=== PATIENT | female | born 1980 | race Caucasian/White ===

== ENCOUNTER → 2016-08-18 | Outpatient (CLI) | payer OTHER ==
[~2016-08-18] MED LIST: CETI10TA10 PO; CHOL100010 PO; DICL1TAB5 PO; DULO60CA44 PO; GOLI50IN INJ; JNLF153028 PO; LORA-741 PO; MORP15TA PO; PRAM1TAB52 PO; PREG1CAP70 PO; SULF500T36 PO
[2016-08-18 13:37] LABS: FERRITIN 264.6 ng/ml (8.0-388.0); MAGNESIUM 2.3 mg/dl (1.8-2.4); THYROID STIMULATING HORMONE 4.85 uIu/ml (0.300-4.500)
== END | disposition home or self-care (01) ==
LOC: C.LABBC 09:48
DX: G25.81 Restless legs syndrome (principal); M62.838 Other muscle spasm; M79.7 Fibromyalgia

== ENCOUNTER 2016-08-26 09:37 | Inpatient (IN) | payer OTHER ==
[~2016-08-26] VITALS: Ht 162.6 cm; Wt 91.0 kg
[~2016-08-26 09:37] MED LIST changes: -DICL1TAB5 PO
[2016-08-26] MEDS ORDERED: DICL1TAB5 PO (09:58)
[2016-08-26] MEDS ORDERED: PROMETHAZINE HCL INJ 6.25 MG in SODIUM CHLORIDE 0.9% 50ML 50 ML IV STA (10:13)
[2016-08-26] MEDS ORDERED: SODIUM CHLORIDE 0.9% 1000ML 2,000 ML IV STA (10:13)
[2016-08-26] MEDS ORDERED: ONDANSETRON INJ 2 MG/ML 2 ML VIAL IV STA (10:13)
[2016-08-26] MEDS: MoRPHine SULFATE 4 MG/ML 1 ML CARP\\VIAL IV PRN ×5 (10:52→22:36)
--- NOTE | 2016-08-26 10:59 | DIAGNOSTIC IMAGING REPORT ---
CHEST ONE VIEW PORTABLE CLINICAL HISTORY: Change in mental status. Weakness. COMPARISON STUDY: No previous studies for comparison. FINDINGS: The cardiac and mediastinal contours are normal. There is no evidence of focal pulmonary consolidation. There is no evidence of failure. No pleural effusions are visualized.[ IMPRESSION: No active disease in the chest. Electronically signed by: Imer Ospina M.D. 08/26/2016 10:58 AM Dictated Date/Time: 08/26/2016 10:58 AM
[2016-08-26 11:11] LABS: BASO % 0.4 %; BASO ABS # 0.03 K/uL (0-0.2); COMPLETE YES; HEMATOCRIT 43.1 % (37-47); IG% 0.2 %; LYMPH % 35.5 %; MEAN CORPUSCULAR HEMOGLOBIN 31.3 pg (25-34); MEAN CORPUSCULAR HGB CONC 34.8 g/dl (32-36); MEAN PLATELET VOLUME 11.1 fL (7.4-10.4); MONO % 5.7 %; NEUT % 54.2 %; PLATELET COUNT 227 K/uL (130-400); RED BLOOD COUNT 4.79 M/uL (4.2-5.4); WHITE BLOOD COUNT 8.18 K/uL (4.8-10.8)
[2016-08-26 11:19] LABS: ALT/SGPT 48 U/L (12-78); AST/SGOT 20 U/L (15-37); BLOOD UREA NITROGEN 6 mg/dl (7-18); BUN/CREATININE RATIO 8.2 (10-20); CALCIUM 8.8 mg/dl (8.5-10.1); CARBON DIOXIDE 25 mmol/L (21-32); CHLORIDE 106 mmol/L (98-107); CREATININE 0.79 mg/dl (0.60-1.20); GLUCOSE 95 mg/dl (70-99); MAGNESIUM 2.3 mg/dl (1.8-2.4); POTASSIUM 3.7 mmol/L (3.5-5.1); SODIUM 141 mmol/L (136-145)
[2016-08-26 11:30] LABS: ALB/GLOB RATIO 1.1 (0.9-2); ALKALINE PHOSPHATASE 32 U/L (45-117); THYROID STIMULATING HORMONE 0.703 uIu/ml (0.300-4.500)
[2016-08-26 11:37] LABS: PREG INTERNAL NEGATIVE QC NEG CLEAR BACKGROUND; PREG INTERNAL POSITIVE QC POS CONTROL LINE
[2016-08-26 14:41] LABS: URINE APPEARANCE CLOUDY (CLEAR); URINE BILIRUBIN NEG (NEG); URINE COLOR YELLOW; URINE NITRITE NEG (NEG); URINE PH 8.5 (4.5-7.5); URINE SPECIFIC GRAVITY 1.013 (1.000-1.030); UROBILINOGEN NEG (NEG); ZZUR CULT IF INDIC CLEAN CATCH NO
[2016-08-26 14:47] LABS: MANUAL MICROSCOPIC REQUIRED? NO; REVIEW REQ? NO
[2016-08-26] MEDS ORDERED: PROMETHAZINE HCL INJ 12.5 MG in SODIUM CHLORIDE 0.9% 50ML 50 ML IV PRN (16:15)
[2016-08-26] MEDS ORDERED: KETOROLAC TROMETHAMINE 30 MG/ML VIAL IV PRN (16:15)
[2016-08-26] MEDS ORDERED: ALUMINUM/MAGNESIUM/SIMETH (MAALOX MAX) 30 ML UDC PO PRN (16:15)
[2016-08-26] MEDS ORDERED: MoRPHine SULFATE 2 MG/ML CARP IV PRN (16:15)
[2016-08-26] MEDS ORDERED: ACETAMINOPHEN 325 MG TAB PO PRN (16:15)
[2016-08-26] MEDS ORDERED: MAGNESIUM HYDROXIDE SUSP 30 ML UDC PO PRN (16:15)
[2016-08-26] MEDS ORDERED: MoRPHine SULFATE 4 MG/ML 1 ML CARP\\VIAL IV PRN (16:15)
[2016-08-26] MEDS ORDERED: BISACODYL 10 MG SUPP PR PRN (16:15)
[2016-08-26] MEDS ORDERED: ZOLPIDEM TARTRATE 5 MG TAB PO PRN (16:15)
[2016-08-26] MEDS ORDERED: ACETAMINOPHEN IV 100 ML IV PRN (16:15)
[2016-08-26] MEDS ORDERED: LORAZEPAM 2 MG/ML 1 ML VIAL IV PRN ×2 (16:15)
[2016-08-26] MEDS ORDERED: DiphenhydrAMINE HCL 50 MG/ML VIAL IV PRN (16:15)
[2016-08-26] MEDS ORDERED: KETOROLAC TROMETHAMINE 30 MG/ML VIAL ONE (16:24)
--- NOTE | 2016-08-26 16:48 | Medical Student: [facility] ---
Med Student History & Physical Date & Time of Service: Aug 26, 2016 at 15:15 Chief Complaint: Weakness, Fatigue, and Vomiting Primary Care Physician: Laz Mata Jr, D.O. History of Present Illness Source: patient, clinic records 35y/o female with a history of Ankylosing Spondylitis, Gilberto Danlos Type III, and Fibromyalgia presents with worsening fatigue and weakness over the past month. She states that she has a long history with fatigue, but that it has been getting more significant recently. The patient states that she has been sleeping most of the day, and when she does walk around, she often feels lightheaded and feels that she is going to fall to the floor. She also has been getting alternating periods of chills and sweats, but has not registered a fever when she checks her temperature. In the past few days, the patient has had multiple episodes of vomiting whenever she attempts to eat or take her medications. The patient gets bouts of nausea and then vomits soon after she ingests food. She has not noticed any blood in the vomit. She states that she has not been able to take her meds on a regular basis due to her increased sleeping habits and vomiting. The patient also has been having an increase in her migraine headaches. She normally takes Imitrex for her headaches but has not been able to keep this medication down recently. The patient currently complains of a migraine headache. The patient also has been having difficulty breathing, especially when she is walking around. She describes her breathing issue as "trying to take a deep breath in the really cold weather". She started using her inhaler again in recent days, but this has not improved symptoms. The patient's mother has a history of adrenal insufficiency. About a year ago, the patient states that she was tested for adrenal insufficiency. One jet pilot told her she had adrenal insufficiency and the second told her that she did not. No further testing or treatment was performed following these visits. The patient denies weight loss, specific abdominal pain, constipation, diarrhea , palpitations, extremity swelling, and increased pigmentation of the skin. Looking at clinic records, the patient has had gallbladder pain and attacks in the past. A HIDA scan from last year showed prompt filling and a gallbladder ejection fraction 77%, with no recreation of symptoms following administration of Kinevac. In July, she was switched from sulindac to diclofenac. Past Medical/Surgical History Medical Problems: (1) Ankylosing Spondylitis Status: Chronic (2) Anxiety State Nos Status: Chronic (3) Asthma, Unspecified Status: Chronic (4) Attn Defic Nonhyperact Status: Chronic (5) Biliary colic Status: Acute (6) Depressive Disorder Nec Status: Chronic (7) Gilberto-Danlos syndrome type III Status: Chronic (8) Esophageal Reflux Status: Chronic (9) Fibromyalgia Status: Chronic Surgical Problems: (1) History of orthopedic surgery Status: Resolved (2) S/P appendectomy Status: Resolved Family History Mother: HTN, pertinent history of (adrenal insufficiency) Social History Smoking Status: Never Smoker Smokeless Tobacco Use: No Alcohol Use: occasionally Drug Use: none Allergies Coded Allergies: Eggplant (Verified Allergy, Intermediate, "HIVES", 07/08/16) [place] (Verified Allergy, Intermediate, "SWELLING", 08/26/16) Oxycodone (Unverified Allergy, Mild, GI SYMPTOMS, 07/08/16) Sulfa Antibiotics (Unverified Allergy, Mild, GI SYMPTOMS, 07/08/16) Soy Allergy (Verified Adverse Reaction, Intermediate, "GI UPSET", 08/26/16) Medications Cetirizine Hcl (Zyrtec), 10 MG PO DAILY PRN for CONGESTION Cholecalciferol (Vitamin D), 1 TAB PO DAILY Diclofenac Sodium (Diclofenac Sodium Dr), 25 MG PO QID Duloxetine Hcl (Cymbalta), 60 MG PO DAILY Ethinyl Estradiol/Norethindr (), 1 TAB PO DAILY Golimumab (Simponi), 50 MG INJ Q4WK Lorazepam (Ativan), 0.5 MG PO TID PRN for Anxiety Morphine Sulfate Ir (Morphine Sulfate Ir), 15-45 MG PO Q4 PRN for Pain Pramipexole Dihydrochloride (Mirapex), 0.5 MG PO HS Pregabalin (Lyrica), 150 MG PO BID Sulfasalazine (Azulfidine), 1,000 MG PO BID Review of Systems Constitutional: + chills, + fatigue, + sweats, No fever, No weight loss Eyes: No discharge, No redness ENT: No hearing loss, No trouble swallowing Respiratory: + shortness of breath, No sputum, No wheezing Cardiovascular: + chest pain (history of costochondritis), No edema, No palpitations Abdomen: + nausea, + vomiting, No constipation, No diarrhea, No pain Musculoskeletal: + joint pain, + muscle pain Genitourinary - Female: No dysuria, No urinary frequency, No urinary incontinence, No urinary urgency Neurologic: No memory loss, No paralysis Endocrine: No excessive thirst, No excessive urination Hematologic / Lymphatic: + night sweats, No swollen lymph nodes Integumentary: No itch, No new/changing skin lesions, No rash Physical Exam Vital Signs (24 Hours) Date Time Temp Pulse Resp B/P Pulse Ox O2 Delivery O2 Flow Rate FiO2 08/26/16 14:14 63 20 114/72 97 Room Air 08/26/16 13:24 72 08/26/16 12:51 63 18 128/91 96 Room Air 08/26/16 10:53 80 20 138/72 98 Room Air 08/26/16 10:45 89 08/26/16 10:40 77 134/83 79 138/85 80 138/72 08/26/16 10:38 98 Room Air 08/26/16 09:42 36.9 92 16 135/81 99 Room Air General Appearance: WD/WN, + pertinent finding (tired appearing, tearful) Head: normocephalic, atraumatic Eyes: normal inspection, EOMI ENT: hearing grossly normal Neck: supple, no adenopathy Respiratory/Chest: lungs clear, normal breath sounds, no respiratory distress, no accessory muscle use Cardiovascular: no edema, no gallop, no murmur, + bradycardia Abdomen/GI: normal bowel sounds, non tender, soft, no organomegaly, no pulsatile mass Back: normal inspection Extremities/Musculoskelatal: no calf tenderness, no pedal edema Neurologic/Psych: alert, oriented x 3 Skin: normal color, warm/dry, no rash Diagnostics Laboratory Results Results Past 24 Hours Test 08/26/16 10:30 08/26/16 13:50 Range/Units White Blood Count 8.18 4.8-10.8 K/uL Red Blood Count 4.79 4.2-5.4 M/uL Hemoglobin 15.0 12.0-16.0 g/dL Hematocrit 43.1 37-47 % Mean Corpuscular Volume 90.0 80-100 fL Mean Corpuscular Hemoglobin 31.3 25-34 pg Mean Corpuscular Hemoglobin Concent 34.8 32-36 g/dl Platelet Count 227 130-400 K/uL Mean Platelet Volume 11.1 7.4-10.4 fL Neutrophils (%) (Auto) 54.2 % Lymphocytes (%) (Auto) 35.5 % Monocytes (%) (Auto) 5.7 % Eosinophils (%) (Auto) 4.0 % Basophils (%) (Auto) 0.4 % Neutrophils # (Auto) 4.43 1.4-6.5 K/uL Lymphocytes # (Auto) 2.90 1.2-3.4 K/uL Monocytes # (Auto) 0.47 0.11-0.59 K/uL Eosinophils # (Auto) 0.33 0-0.5 K/uL Basophils # (Auto) 0.03 0-0.2 K/uL RDW Standard Deviation 44.2 36.4-46.3 fL RDW Coefficient of Variation 13.4 11.5-14.5 % Immature Granulocyte % (Auto) 0.2 % Immature Granulocyte # (Auto) 0.02 0.00-0.02 K/uL Sodium Level 141 136-145 mmol/L Potassium Level 3.7 3.5-5.1 mmol/L Chloride Level 106 98-107 mmol/L Carbon Dioxide Level 25 21-32 mmol/L Anion Gap 10.0 3-11 mmol/L Blood Urea Nitrogen 6 7-18 mg/dl Creatinine 0.79 0.60-1.20 mg/dl Est Creatinine Clear Calc Drug Dose 109.7 ml/min Estimated GFR () 113.2 Estimated GFR (Non- 97.7 BUN/Creatinine Ratio 8.2 10-20 Random Glucose 95 70-99 mg/dl Calcium Level 8.8 8.5-10.1 mg/dl Magnesium Level 2.3 1.8-2.4 mg/dl Total Bilirubin 0.7 0.2-1 mg/dl Aspartate Amino Transf (AST/SGOT) 20 15-37 U/L Alanine Aminotransferase (ALT/SGPT) 48 12-78 U/L Alkaline Phosphatase 32 45-117 U/L Total Creatine Kinase 69 26-192 U/L Total Protein 7.5 6.4-8.2 gm/dl Albumin 4.0 3.4-5.0 gm/dl Globulin 3.5 2.5-4.0 gm/dl Albumin/Globulin Ratio 1.1 0.9-2 Thyroid Stimulating Hormone (TSH) 0.703 0.300-4.500 uIu/ml Human Chorionic Gonadotropin, Qual NEG NEG Urine Color YELLOW Urine Appearance CLOUDY CLEAR Urine pH 8.5 4.5-7.5 Urine Specific [place] 1.013 1.000-1.030 Urine Protein NEG NEG Urine Glucose (UA) NEG NEG Urine Ketones NEG NEG Urine Occult Blood NEG NEG Urine Nitrite NEG NEG Urine Bilirubin NEG NEG Urine Urobilinogen NEG NEG Urine Leukocyte Esterase NEG NEG Urine WBC (Auto) 1-5 0-5 /hpf Urine RBC (Auto) 0-4 0-4 /hpf Urine Hyaline Casts (Auto) 1-5 0-5 /lpf Urine Epithelial Cells (Auto) 5-10 0-5 /lpf Urine Bacteria (Auto) NEG NEG Microbiology Results 08/26/16 Blood Culture, Received Pending 08/26/16 Blood Culture, Received Pending Diagnostic Radiology IMPRESSION: No active disease in the chest. EKG Bradycardia, otherwise normal ECG Impression Assessment and Plan 35y/o with personal history of ankylosing spondylitis and Gilberto Danlos type III and family history of adrenal insufficiency presents with fatigue, weakness , nausea, and vomiting. Given her history and current symptoms, a broad differential includes medication side effect, multiple sclerosis, medication induced MS complex, Folic acid deficiency, Ehrlichiosis, B12 deficiency/ pernicious anemia, lyme disease, adrenal insufficiency, gallbladder disease, lymphoma, connective tissue disease (SLE, Scleroderma, polymyositis, RA, etc), viral gastroenteritis, stomach ulcers, and sepsis. At this time, will provide supportive care of antiemetics, IV fluids, soft liquid diet. Will administer Imitrex for her migraine. In terms of further testing, imaging tests that will be performed include an Ultrasound of the of the RUQ and MRI of the brain. These will help to rule out gallbladder disease and a central demyelinating disorder, respectively. A 8am cortisol level, basal plasma ACTH, and cosyntropin 250 mcg stimulation test will be performed to look for potential adrenal insufficiency and overall adrenal function. Blood cultures have been obtained and are currently pending to rule out infectious etiology. Looking into previous records from community health systems, were not able to recover recent antibody testing. Therefore, antibody tests for connective tissue diseases have been ordered, including anti double stranded, anti-histone ab, anti neutrophil antibody, anti SS DNA, anti-smooth muscle antibody, anti-thyroid AB, antiphospholipid antibody, anticardiolipin IGG, centromere antibody, lupus anticoagulant, sjogren's antibody, MISA antibodies, and scleroderma antibody. Lyme antibodies, erlichia, Vitamin B12 levels, Folic Acid levels, ANCA, TEMITOPE, and Rheumatoid factor were all ordered. Nausea/Vomiting- Administer Ondansetron 4mg IV PRN. Administer IV fluids. Migraine Headache- Administer Ketorolac Tromethamine 30mg IM and Imitrex. Depressive Disorder/Anxiety- Administer Duloxetine HCL 60mg PO daily. Administer Lorazepam 0.5mg Q4Hr PRN for anxiety. Ankylosing Spondylitis/joint pains- Administer Sulfasalazine 1000mg PO BID. Hold the Simponi. Administer Pregabalin 150mg PO BID. Reflux- Administer Pantoprazole Sodium 40mg IV daily.
--- NOTE | 2016-08-26 17:08 | DIAGNOSTIC IMAGING REPORT ---
ABDOMINAL ULTRASOUND, RIGHT UPPER QUADRANT HISTORY: headache, nausea and vomiting, cholelithiasis. COMPARISON: Abdominal ultrasound 10/08/2014. FINDINGS: Pancreas: The pancreatic head and tail are obscured by overlying bowel gas. The remaining portions of the pancreas are within normal limits. Liver: Questionable hepatic steatosis. Gallbladder: No gallbladder wall thickening. No gallstones. The gallbladder appears slightly contracted. CBD: 4 mm. Right kidney: No hydronephrosis. IMPRESSION: 1. The gallbladder appears slightly contracted. However, there is no definite gallbladder wall thickening or gallstones. 2. Normal caliber common bile duct. 3. Borderline hepatic steatosis. Electronically signed by: Jun Garber M.D. 08/26/2016 5:06 PM Dictated Date/Time: 08/26/2016 5:04 PM
--- NOTE | 2016-08-26 17:09 | EMERGENCY ROOM VISIT NOTE ---
History Report prepared by Gus: Alonso Oneill Under the Supervision of: Dr. Isaac Proctor M.D. First contact with patient: 10:10 Chief Complaint: ILLNESS Stated Complaint: VOMITING, NOT ALERT MUCH, WEAK History of Present Illness The patient is a 35 year old female who presents to the Emergency Room with complaints of worsening vomiting over the past several days. The patient has not yet vomited this morning, but is nauseous and dry heaving. The patient also complains of worsening fatigue over the past 2.5 weeks that has been causing her to sleep excessively. She also complains of chills, dizziness, some coughing and a headache consistent with past migraines. The patient has had the headache for several days now, which covers her entire head and is rated 8 or 9/ 10 in severity. The patient denies any fevers or diarrhea. The patient has tried using her inhaler, which did not help. She has a history of migraines. The patient contacted her PCP, Dr. Mata, when her fatigue was worsening. Source of History: patient Onset: several days Position: other (GI) Quality: other (vomiting) Timing: worsening Associated Symptoms: + chills, + cough, + fatigue, + headache, + nausea, No diarrhea, No fevers Review of Systems See HPI for pertinent positives & negatives. A total of 10 systems reviewed and were otherwise negative. Past Medical & Surgical Medical Problems: (1) Ankylosing Spondylitis (2) Anxiety State Nos (3) Appendicitis (4) Asthma, Unspecified (5) Attn Defic Nonhyperact (6) Depressive Disorder Nec (7) Gilberto-Danlos syndrome type III (8) Esophageal Reflux (9) Fibromyalgia (10) Intractable headache Surgical Problems: (1) History of orthopedic surgery (2) S/P appendectomy Family History Patient reports no known family medical history. Social History Smoking Status: Never Smoker Housing Status: lives with family Current/Historical Medications Scheduled Cholecalciferol (Vitamin D), 1 TAB PO DAILY Diclofenac Sodium (Diclofenac Sodium Dr), 25 MG PO QID Duloxetine Hcl (Cymbalta), 60 MG PO DAILY Ethinyl Estradiol/Norethindr (), 1 TAB PO DAILY Golimumab (Simponi), 50 MG INJ Q4WK Pramipexole Dihydrochloride (Mirapex), 0.5 MG PO HS Pregabalin (Lyrica), 150 MG PO BID Sulfasalazine (Azulfidine), 1,000 MG PO BID Scheduled PRN Cetirizine Hcl (Zyrtec), 10 MG PO DAILY PRN for CONGESTION Lorazepam (Ativan), 0.5 MG PO TID PRN for Anxiety Morphine Sulfate Ir (Morphine Sulfate Ir), 15-45 MG PO Q4 PRN for Pain Allergies Coded Allergies: Eggplant (Verified Allergy, Intermediate, "HIVES", 07/08/16) [place] (Verified Allergy, Intermediate, "SWELLING", 08/26/16) Oxycodone (Unverified Allergy, Mild, GI SYMPTOMS, 07/08/16) Sulfa Antibiotics (Unverified Allergy, Mild, GI SYMPTOMS, 07/08/16) Soy Allergy (Verified Adverse Reaction, Intermediate, "GI UPSET", 08/26/16) Physical Exam Vital Signs Date Time Temp Pulse Resp B/P Pulse Ox O2 Delivery O2 Flow Rate FiO2 08/26/16 17:53 71 20 135/71 96 Room Air 08/26/16 16:09 80 20 141/91 98 Room Air 08/26/16 14:14 63 20 114/72 97 Room Air 08/26/16 13:24 72 08/26/16 12:51 63 18 128/91 96 Room Air 08/26/16 10:53 80 20 138/72 98 Room Air 08/26/16 10:45 89 08/26/16 10:40 77 134/83 79 138/85 80 138/72 08/26/16 10:38 98 Room Air 08/26/16 09:42 36.9 92 16 135/81 99 Room Air Physical Exam GENERAL: Patient is in no acute distress. HEENT: No acute trauma, normocephalic atraumatic, mucous membranes moist, no nasal congestion, no scleral icterus. NECK: No stridor, no adenopathy, no meningismus, trachea is midline. LUNGS: Clear to auscultation bilaterally, no wheeze, no rhonchi, breath sounds equal. HEART: Without murmurs gallops or rubs, regular rate and rhythm. ABDOMEN: Soft, nontender, bowel sounds positive, no hernias, no peritonitis. EXTREMITIES: No cyanosis or edema, full range of motion of all the joints without pain or difficulty, no signs for acute trauma. NEUROLOGIC: Oriented x 3, no acute motor or sensory deficits, no focal weakness. SKIN: No rash, no jaundice, no diaphoresis. Medical Decision & Procedures ER Provider Diagnostic Interpretation: Orthostatic vital signs are negative. X-ray results as stated below per interpretation by me and the radiologist: CHEST ONE VIEW PORTABLE CLINICAL HISTORY: Change in mental status. Weakness. COMPARISON STUDY: No previous studies for comparison. FINDINGS: The cardiac and mediastinal contours are normal. There is no evidence of focal pulmonary consolidation. There is no evidence of failure. No pleural effusions are visualized.[ IMPRESSION: No active disease in the chest. Electronically signed by: Imer Ospina M.D. 08/26/2016 10:58 AM Dictated Date/Time: 08/26/2016 10:58 AM Laboratory Results 08/26/16 10:30 Red Blood Count 4.79, Mean Corpuscular Volume 90.0, Mean Corpuscular Hemoglobin 31.3, Mean Corpuscular Hemoglobin Concent 34.8, Mean Platelet Volume 11.1, Neutrophils (%) (Auto) 54.2, Lymphocytes (%) (Auto) 35.5, Monocytes (%) (Auto) 5.7, Eosinophils (%) (Auto) 4.0, Basophils (%) (Auto) 0.4, Neutrophils # (Auto) 4.43, Lymphocytes # (Auto) 2.90, Monocytes # (Auto) 0.47, Eosinophils # (Auto) 0.33, Basophils # (Auto) 0.03 08/26/16 10:30 Test 08/26/16 10:30 08/26/16 13:50 08/26/16 16:10 08/26/16 16:23 White Blood Count 8.18 K/uL (4.8-10.8) Red Blood Count 4.79 M/uL (4.2-5.4) Hemoglobin 15.0 g/dL (12.0-16.0) Hematocrit 43.1 % (37-47) Mean Corpuscular Volume 90.0 fL (80-100) Mean Corpuscular Hemoglobin 31.3 pg (25-34) Mean Corpuscular Hemoglobin Concent 34.8 g/dl (32-36) Platelet Count 227 K/uL (130-400) Mean Platelet Volume 11.1 fL (7.4-10.4) Neutrophils (%) (Auto) 54.2 % Lymphocytes (%) (Auto) 35.5 % Monocytes (%) (Auto) 5.7 % Eosinophils (%) (Auto) 4.0 % Basophils (%) (Auto) 0.4 % Neutrophils # (Auto) 4.43 K/uL (1.4-6.5) Lymphocytes # (Auto) 2.90 K/uL (1.2-3.4) Monocytes # (Auto) 0.47 K/uL (0.11-0.59) Eosinophils # (Auto) 0.33 K/uL (0-0.5) Basophils # (Auto) 0.03 K/uL (0-0.2) RDW Standard Deviation 44.2 fL (36.4-46.3) RDW Coefficient of Variation 13.4 % (11.5-14.5) Immature Granulocyte % (Auto) 0.2 % Immature Granulocyte # (Auto) 0.02 K/uL (0.00-0.02) Anion Gap 10.0 mmol/L (3-11) Est Creatinine Clear Calc Drug Dose 109.7 ml/min Estimated GFR () 113.2 Estimated GFR (Non- 97.7 BUN/Creatinine Ratio 8.2 (10-20) Calcium Level 8.8 mg/dl (8.5-10.1) Magnesium Level 2.3 mg/dl (1.8-2.4) Total Bilirubin 0.7 mg/dl (0.2-1) Aspartate Amino Transf (AST/SGOT) 20 U/L (15-37) Alanine Aminotransferase (ALT/SGPT) 48 U/L (12-78) Alkaline Phosphatase 32 U/L (45-117) Total Creatine Kinase 69 U/L (26-192) Total Protein 7.5 gm/dl (6.4-8.2) Albumin 4.0 gm/dl (3.4-5.0) Globulin 3.5 gm/dl (2.5-4.0) Albumin/Globulin Ratio 1.1 (0.9-2) Thyroid Stimulating Hormone (TSH) 0.703 uIu/ml (0.300-4.500) Human Chorionic Gonadotropin, Qual NEG (NEG) Urine Color YELLOW Urine Appearance CLOUDY (CLEAR) Urine pH 8.5 (4.5-7.5) Urine Specific [place] 1.013 (1.000-1.030) Urine Protein NEG (NEG) Urine Glucose (UA) NEG (NEG) Urine Ketones NEG (NEG) Urine Occult Blood NEG (NEG) Urine Nitrite NEG (NEG) Urine Bilirubin NEG (NEG) Urine Urobilinogen NEG (NEG) Urine Leukocyte Esterase NEG (NEG) Urine WBC (Auto) 1-5 /hpf (0-5) Urine RBC (Auto) 0-4 /hpf (0-4) Urine Hyaline Casts (Auto) 1-5 /lpf (0-5) Urine Epithelial Cells (Auto) 5-10 /lpf (0-5) Urine Bacteria (Auto) NEG (NEG) Laboratory results reviewed by me. Urine dip was negative for infection or blood. Medications Administered Medications (Trade) Dose Ordered Sig/Cristóbal Route Start Time Stop Time Status Last Admin Dose Admin Sodium Chloride (Nss 1000ml) 2,000 ml @ 999 mls/hr Q2H1M STAT IV 08/26/16 10:13 08/26/16 12:13 DC 08/26/16 10:48 999 MLS/HR Ondansetron HCl (Zofran Inj) 4 mg NOW STAT IV 08/26/16 10:13 08/26/16 10:17 DC 08/26/16 10:51 4 MG Morphine Sulfate 4 mg 4 mg Q15M PRN IV 08/26/16 10:15 09/09/16 10:14 08/26/16 17:41 4 MG Promethazine HCl/ Sodium Chloride (Phenergan Inj/ Nss 50ml) 50.25 ml @ 204 mls/hr NOW STAT IV 08/26/16 10:13 08/26/16 10:27 DC 08/26/16 10:49 204 MLS/HR Ketorolac Tromethamine (Toradol Inj) 30 mg STK-MED ONCE .ROUTE 08/26/16 16:24 08/26/16 16:26 DC 08/26/16 16:28 30 MG ECG Indication: weakness Rate (beats per minute): 54 Rhythm: sinus bradycardia Findings: no acute ischemic change, no ectopy ED Course 1010: The patient was evaluated in room B3b. A complete history and physical exam was performed. 1013: Promethazine HCl 6.25 mg / NSS 50.25 ml @ 204 mls/hr, Zofran 4 mg IV, NSS 2000 ml @ 999 mls/hr. 1015: Morphine Sulfate 4 mg IV. 1408: The patient and her father are not comfortable with her going home at this time. 1505: Discussed the case with Dr. Haile, [facility]. The patient will be evaluated. Medical Decision Differential diagnosis: depression, tension headache, migraine headache, dehydration, electrolyte imbalance, UTI, pneumonia, exacerbation of asthma, , anemia. There is no leukocytosis or concerning anemia. No significant electrolyte abnormality, kidney failure, hepatitis. The patient appears to be in a euthyroid state. Chest x-ray does not show pneumonia, CHF or mediastinal widening. EKG shows a sinus rhythm, no acute ischemia. Urinalysis does not show infection. On exam, there were no focal neurologic deficits. The patient appeared fatigued, she was not febrile or toxic. Patient received IV saline, IV morphine and IV Zofran. She received IV Phenergan. The patient still feels unwell. She is still nauseated, she still feels exhausted and weak. Her father does not believe she can be managed at home. Given the circumstances, admission/observation is warranted. At this point, the cause for her entire presentation is unclear. Consults Time Called: 1500 Consulting Physician: Dr. Haile, [facility] Returned Call: [phone]: Discussed the case with Dr. Haile, [facility]. The patient will be evaluated. Impression Primary Impression: Weakness Additional Impressions: Dehydration Vomiting Scribe Attestation The scribe's documentation has been prepared under my direction and personally reviewed by me in its entirety. I confirm that the note above accurately reflects all work, treatment, procedures, and medical decision making performed by me. Departure Information Dispostion Being Evaluated By Hospitalist Referrals Laz Mata Jr,D.O. (PCP) Patient Instructions My [facility] Problem Qualifiers
[2016-08-26 18:38] VITALS: BP 126/84; PULSE 66; TEMP 36.5; O2SAT 96; Ht 162.6 cm; Wt 91.0 kg
[2016-08-26] MEDS ORDERED: LORAZEPAM INJ 0.5 MG in SYRINGE 0.75 ML IV PRN (19:15)
[2016-08-26] MEDS ORDERED: LORAZEPAM INJ 1 MG in SYRINGE 0.5 ML IV PRN (19:15)
[2016-08-26] MEDS: ONDANSETRON INJ 2 MG/ML 2 ML VIAL IV PRN (20:23)
--- NOTE | 2016-08-26 20:56 | History and Physical ---
History & Physical Date & Time of Service: Aug 26, 2016 at 20:41 Chief Complaint: Intractable Headache Primary Care Physician: Laz Mata Jr,D.O. History of Present Illness Source: patient, parent The patient is a 35-year-old female who was referred by her PCP Dr. Mata, to the emergency department with worsening fatigue, chills, dizziness, nausea and vomiting, and worsening headache over the past several days. She reports that her headaches are consistent with previous migraines but are lasting longer than usual. She's had no recent travel, sick exposures that she is aware of, suspect food or liquid intake. 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 Social History Smoking Status: Never Smoker Smokeless Tobacco Use: No Alcohol Use: occasionally Drug Use: none Housing status: lives with family Multi-Drug Resistant Organisms History of MDRO: No Allergies Coded Allergies: Eggplant (Verified Allergy, Intermediate, "HIVES", 07/08/16) Lee (Verified Allergy, Intermediate, "SWELLING", 08/26/16) Oxycodone (Unverified Allergy, Mild, GI SYMPTOMS, 07/08/16) Sulfa Antibiotics (Unverified Allergy, Mild, GI SYMPTOMS, 07/08/16) Soy Allergy (Verified Adverse Reaction, Intermediate, "GI UPSET", 08/26/16) Home Medications Scheduled Cholecalciferol (Vitamin D), 1 TAB PO DAILY Diclofenac Sodium (Diclofenac Sodium Dr), 25 MG PO QID Duloxetine Hcl (Cymbalta), 60 MG PO DAILY Ethinyl Estradiol/Norethindr (), 1 TAB PO DAILY Golimumab (Simponi), 50 MG INJ Q4WK Pramipexole Dihydrochloride (Mirapex), 0.5 MG PO HS Pregabalin (Lyrica), 150 MG PO BID Sulfasalazine (Azulfidine), 1,000 MG PO BID Scheduled PRN Cetirizine Hcl (Zyrtec), 10 MG PO DAILY PRN for CONGESTION Lorazepam (Ativan), 0.5 MG PO TID PRN for Anxiety Morphine Sulfate Ir (Morphine Sulfate Ir), 15-45 MG PO Q4 PRN for Pain Review of Systems The patient denies chest pain, palpitations, shortness of breath, cough, lower extremity swelling, vision change, hearing change, sore throat, blood in urine or stool, dysuria, urinary frequency or urgency, memory loss, rash, abnormal bruising or bleeding, imbalance, focal weakness, numbness or tingling in arms or legs, arthralgias or myalgias, back or neck pain, or night sweats. The review of systems is otherwise negative other than for that already noted above, and at least 10 systems have been reviewed. Physical Exam Vital Signs Date Time Temp Pulse Resp B/P Pulse Ox O2 Delivery O2 Flow Rate FiO2 08/26/16 18:38 36.5 66 20 126/84 96 Room Air 08/26/16 17:53 71 20 135/71 96 Room Air 08/26/16 16:09 80 20 141/91 98 Room Air 08/26/16 14:14 63 20 114/72 97 Room Air 08/26/16 13:24 72 08/26/16 12:51 63 18 128/91 96 Room Air 08/26/16 10:53 80 20 138/72 98 Room Air 08/26/16 10:45 89 08/26/16 10:40 77 134/83 79 138/85 80 138/72 08/26/16 10:38 98 Room Air 08/26/16 09:42 36.9 92 16 135/81 99 Room Air The patient is awake, lying in bed , has her head covered with a blanket even though in a dark room, and in mild acute distress secondary to headache pain. HEENT--PERRL, EOMI, mucous membranes and oropharynx dry. Neck--supple, no JVD or bruits, thyroid normal, trachea midline, no adenopathy. Heart--normal S1 and S2, no extra beats, no murmurs, rubs or gallops. Lungs--clear bilaterally with good air movement, no respiratory distress, no accessory muscle use. Abdomen--normal bowel sounds and soft, nontender and nondistended, no hernias or masses, no organomegaly. Extremities--no cyanosis, clubbing or edema. There are good distal pulses b/l. Dermatologic--normal skin turgor, normal color, warm and dry, no abnormal lymph nodes, no rash. Neurologic--cranial nerves II through XII grossly intact, motor and sensory examination normal. Rheumatologic--normal range of motion, nontender, muscles and joints. Psychiatric--normal affect. Diagnostics Laboratory Results Results Past 24 Hours Test 08/26/16 10:30 08/26/16 13:50 08/26/16 20:15 Range/Units White Blood Count 8.18 4.8-10.8 K/uL Red Blood Count 4.79 4.2-5.4 M/uL Hemoglobin 15.0 12.0-16.0 g/dL Hematocrit 43.1 37-47 % Mean Corpuscular Volume 90.0 80-100 fL Mean Corpuscular Hemoglobin 31.3 25-34 pg Mean Corpuscular Hemoglobin Concent 34.8 32-36 g/dl Platelet Count 227 130-400 K/uL Mean Platelet Volume 11.1 7.4-10.4 fL Neutrophils (%) (Auto) 54.2 % Lymphocytes (%) (Auto) 35.5 % Monocytes (%) (Auto) 5.7 % Eosinophils (%) (Auto) 4.0 % Basophils (%) (Auto) 0.4 % Neutrophils # (Auto) 4.43 1.4-6.5 K/uL Lymphocytes # (Auto) 2.90 1.2-3.4 K/uL Monocytes # (Auto) 0.47 0.11-0.59 K/uL Eosinophils # (Auto) 0.33 0-0.5 K/uL Basophils # (Auto) 0.03 0-0.2 K/uL RDW Standard Deviation 44.2 36.4-46.3 fL RDW Coefficient of Variation 13.4 11.5-14.5 % Immature Granulocyte % (Auto) 0.2 % Immature Granulocyte # (Auto) 0.02 0.00-0.02 K/uL Sodium Level 141 136-145 mmol/L Potassium Level 3.7 3.5-5.1 mmol/L Chloride Level 106 98-107 mmol/L Carbon Dioxide Level 25 21-32 mmol/L Anion Gap 10.0 3-11 mmol/L Blood Urea Nitrogen 6 7-18 mg/dl Creatinine 0.79 0.60-1.20 mg/dl Est Creatinine Clear Calc Drug Dose 109.7 ml/min Estimated GFR () 113.2 Estimated GFR (Non- 97.7 BUN/Creatinine Ratio 8.2 10-20 Random Glucose 95 70-99 mg/dl Calcium Level 8.8 8.5-10.1 mg/dl Magnesium Level 2.3 1.8-2.4 mg/dl Total Bilirubin 0.7 0.2-1 mg/dl Aspartate Amino Transf (AST/SGOT) 20 15-37 U/L Alanine Aminotransferase (ALT/SGPT) 48 12-78 U/L Alkaline Phosphatase 32 45-117 U/L Total Creatine Kinase 69 26-192 U/L Total Protein 7.5 6.4-8.2 gm/dl Albumin 4.0 3.4-5.0 gm/dl Globulin 3.5 2.5-4.0 gm/dl Albumin/Globulin Ratio 1.1 0.9-2 Thyroid Stimulating Hormone (TSH) 0.703 0.300-4.500 uIu/ml Human Chorionic Gonadotropin, Qual NEG NEG Urine Color YELLOW Urine Appearance CLOUDY CLEAR Urine pH 8.5 4.5-7.5 Urine Specific [place] 1.013 1.000-1.030 Urine Protein NEG NEG Urine Glucose (UA) NEG NEG Urine Ketones NEG NEG Urine Occult Blood NEG NEG Urine Nitrite NEG NEG Urine Bilirubin NEG NEG Urine Urobilinogen NEG NEG Urine Leukocyte Esterase NEG NEG Urine WBC (Auto) 1-5 0-5 /hpf Urine RBC (Auto) 0-4 0-4 /hpf Urine Hyaline Casts (Auto) 1-5 0-5 /lpf Urine Epithelial Cells (Auto) 5-10 0-5 /lpf Urine Bacteria (Auto) NEG NEG Microbiology Results 08/26/16 Blood Culture, Received Pending 08/26/16 Blood Culture, Received Pending Diagnostic Radiology Patient Name: TARA KELLY Unit Number: [id number] Dictated: 08/26/[id number] Transcribed: 08/26/16 105 ARG Printed Date/Time: [~ rep prt dt]/[~ rep prt tm] [~ rep ct labl] - [~ rep ct ivnm] [facility] Radiology Department [place], [place] [id number] Dictated: 08/26/16 1058 Transcribed: 08/26/16 1058 ARG Printed Date/Time: [~ rep prt dt]/[~ rep prt tm] [~ rep ct labl] - [~ rep ct ivnm] [~ rep ct add3]] CHEST ONE VIEW PORTABLE CLINICAL HISTORY: Change in mental status. Weakness. COMPARISON STUDY: No previous studies for comparison. FINDINGS: The cardiac and mediastinal contours are normal. There is no evidence of focal pulmonary consolidation. There is no evidence of failure. No pleural effusions are visualized.[ IMPRESSION: No active disease in the chest. Electronically signed by: Imer Ospina M.D. 08/26/2016 10:58 AM Dictated Date/Time: 08/26/2016 10:58 AM The status of this report is Signed. Draft = Not yet reviewed or approved by Radiologist. Signed = Reviewed and approved by Radiologist. <AttendingPhy></AttendingPhy> <FamilyPhy>Laz Mata Jr,D.O.</FamilyPhy> < PrimaryPhy>Laz Mata Jr,D.O.</PrimaryPhy> <UnitNumber>[id number]</ UnitNumber> <VisitNumber>[id number]</VisitNumber> <PatientName>TARA KELLY</ PatientName> <DateOfBirth>1980</DateOfBirth> <Location>[facility]</Location> < ServiceDate>08/26/16</ServiceDate> <MNE>ESINDI</MNE> <OrderingPhy>Isaac Proctor M.D.</OrderingPhy> <OrderingPhyMNE>f rep ord dr major</OrderingPhyMNE> < DictatingPhyMNE>f rep dict dr major</DictatingPhyMNE> <CCListMNE>f rep ct mne</ CCListMNE> <AdmittingPhyMNE>f pt admit dr major</AdmittingPhyMNE> <AttendingPhyMNE >f pt attend dr major</AttendingPhyMNE> <ConsultingPhyMNE>f pt consult dr major</ConsultingPhyMNE> <FamilyPhyMNE>f pt fam dr major</FamilyPhyMNE> <OtherPhyMNE>f pt other dr major</OtherPhyMNE> < PrimaryPhyMNE>f pt prim care dr major</PrimaryPhyMNE> <ReferringPhyMNE>f pt referring dr major</ReferringPhyMNE> Patient Name: TARA KELLY Unit Number: [id number] Dictated: 08/26/161703 Transcribed: 08/26/161703 PA Printed Date/Time: [~ rep prt dt]/[~ rep prt tm] [~ rep ct labl] - [~ rep ct ivnm] [facility] [place] [address] Dictated: 08/26/161703 Transcribed: 08/26/161703 PAJ Printed Date/Time: [~ rep prt dt]/[~ rep prt tm] [~ rep ct labl] - [~ rep ct ivnm] ABDOMINAL ULTRASOUND, RIGHT UPPER QUADRANT HISTORY: headache, nausea and vomiting, cholelithiasis. COMPARISON: Abdominal ultrasound 10/08/2014. FINDINGS: Pancreas: The pancreatic head and tail are obscured by overlying bowel gas. The remaining portions of the pancreas are within normal limits. Liver: Questionable hepatic steatosis. Gallbladder: No gallbladder wall thickening. No gallstones. The gallbladder appears slightly contracted. CBD: 4 mm. Right kidney: No hydronephrosis. IMPRESSION: 1. The gallbladder appears slightly contracted. However, there is no definite gallbladder wall thickening or gallstones. 2. Normal caliber common bile duct. 3. Borderline hepatic steatosis. Electronically signed by: Jun Garber M.D. 08/26/2016 5:06 PM Dictated Date/Time: 08/26/2016 5:04 PM The status of this report is Signed. Draft = Not yet reviewed or approved by Radiologist. Signed = Reviewed and approved by Radiologist. <AttendingPhy></AttendingPhy> <FamilyPhy>Laz Mata Jr,D.O.</FamilyPhy> < PrimaryPhy>Laz Mata Jr,D.O.</PrimaryPhy> <UnitNumber>[id number]</ UnitNumber> <VisitNumber>[id number]</VisitNumber> <PatientName>TARA KELLY</ PatientName> <DateOfBirth>1980</DateOfBirth> <Location>[facility]</Location> < ServiceDate>08/26/16</ServiceDate> <MNE>ESINDI</MNE> <OrderingPhy>Jasper Haile M.D.</OrderingPhy> <OrderingPhyMNE>f rep ord dr major</OrderingPhyMNE> < DictatingPhyMNE>f rep dict dr major</DictatingPhyMNE> <CCListMNE>f rep ct aldoe</ CCListMNE> <AdmittingPhyMNE>f pt admit dr major</AdmittingPhyMNE> <AttendingPhyMNE >f pt attend dr major</AttendingPhyMNE> <ConsultingPhyMNE>f pt consult dr major</ConsultingPhyMNE> <FamilyPhyMNE>f pt fam dr major</FamilyPhyMNE> <OtherPhyMNE>f pt other dr major</OtherPhyMNE> < PrimaryPhyMNE>f pt prim care dr major</PrimaryPhyMNE> <ReferringPhyMNE>f pt referring dr major</ReferringPhyMNE> EKG EKG shows sinus bradycardia at 54 bpm, there are no acute ST-T changes. Impression Assessment and Plan Intractable migraine headache, nausea and vomiting with dehydration--the patient will be admitted to medical floor. She will be placed on normal saline with potassium chloride 20 mEq at 100 ML's per hour, full liquid diet as tolerated, Toradol 30 g IV every 6 hours when necessary, morphine sulfate 2-4 mg IV every [address] of the head was negative, we'll order an MRI the brain. Ankylosing spondylitis/Gilberto-Danlos syndrome type III--hold diclofenac sodium 25 mg by mouth 4 times a day, Simponi 50 mg injection every [address] on Toradol as noted above. Continue sulfasalazine 1000 mg by mouth twice a day. Restless leg syndrome--continue Mirapex 0.5 mg by mouth at bedtime. Depression/chronic pain-- continue Cymbalta 60 mg by mouth by mouth daily, might benefit from increasing to twice a day. Continue Lyrica 150 mg by mouth twice a day. Progressive fatigue--we'll order workup including TEMITOPE-12, ANCA, RF, LYME, EHRLICHIOSIS. She reports that her mother has been diagnosed with adrenal insufficiency, and we'll order a workup for adrenal insufficiency as well. Level of Care Med/Surg Advanced Directives Existing Advance Directive: No Existing Living Will: No Existing Power of [place] Dehydrator Operator: No Resuscitation Status FULL RESUSCITATION VTE Prophylaxis VTE Risk Assessment Done? Y/N: Yes Risk Level: Moderate Given or contraindicated: SCD's Social Service Consult None Apply
[2016-08-26 21:22] LABS: RHEUMATOID FACTOR < 10.0 U/mL (0-15)
--- NOTE | 2016-08-26 21:46 | DIAGNOSTIC IMAGING REPORT ---
Brain MRI WITH AND WITHOUT CONTRAST HISTORY: intractable headache TECHNIQUE: Multiplanar multisequence MRI of the brain was performed both before and after the intravenous administration of contrast. COMPARISON STUDY: None. FINDINGS: There are no areas of restricted diffusion to suggest acute infarction. The midline structures are intact. The paranasal sinuses are clear. The mastoid air cells are clear. The ventricles and sulci are within normal limits for age. There is no mass, hematoma, midline shift. The major vascular flow-voids at the skull base are well maintained. Postcontrast sequences show no areas of abnormal enhancement. IMPRESSION: No acute intracranial abnormality. Electronically signed by: Jun Garber M.D. 08/26/2016 9:45 PM Dictated Date/Time: 08/26/2016 9:37 PM
[2016-08-26] MEDS: NSS + 20MEQ KCL 1000ML 1,000 ML IV SCH (22:34)
[2016-08-26] MEDS: PREGABALIN 150 MG CAP PO SCH (22:34)
[2016-08-26] MEDS: DOCUSATE SODIUM 100 MG CAP PO SCH (22:38)
[2016-08-26] MEDS: SULFASALAZINE 500 MG TAB PO SCH (22:39)
[2016-08-26] MEDS: PRAMIPEXOLE DIHYDROCHLORIDE 0.5 MG TAB PO SCH (22:40)
[2016-08-26 23:59] LABS: LYME DISEASE AB IGG NEG (NEG); LYME DISEASE AB IGM NEG (NEG)
[2016-08-27] VITALS: O2SAT 96
[2016-08-27 00:49] VITALS: BP 114/72; PULSE 64; TEMP 36.6; O2SAT 96
[2016-08-27] MEDS: ONDANSETRON INJ 2 MG/ML 2 ML VIAL IV PRN (03:15)
[2016-08-27] MEDS: NSS + 20MEQ KCL 1000ML 1,000 ML IV SCH ×3 (05:51→18:19)
[2016-08-27 07:40] VITALS: O2SAT 96
[2016-08-27 07:46] LABS: BASO % 0.3 %; BASO ABS # 0.02 K/uL (0-0.2); COMPLETE YES; EOS % 2.3 %; HEMATOCRIT 40.2 % (37-47); IG% 0.2 %; LYMPH % 40.2 %; LYMPH ABS # 2.42 K/uL (1.2-3.4); MEAN CELL VOLUME 90.7 fL (80-100); MEAN CORPUSCULAR HEMOGLOBIN 30.2 pg (25-34); MEAN CORPUSCULAR HGB CONC 33.3 g/dl (32-36); MEAN PLATELET VOLUME 10.7 fL (7.4-10.4); MONO % 6.8 %; NEUT % 50.2 %; PLATELET COUNT 203 K/uL (130-400); RED BLOOD COUNT 4.43 M/uL (4.2-5.4); WHITE BLOOD COUNT 6.02 K/uL (4.8-10.8)
[2016-08-27] MEDS: DOCUSATE SODIUM 100 MG CAP PO SCH ×2 (07:52→19:57)
[2016-08-27] MEDS: PREGABALIN 150 MG CAP PO SCH ×2 (07:52→20:01)
[2016-08-27] MEDS: DULOXETINE HCL 60 MG CAP PO SCH (07:53)
[2016-08-27 07:59] LABS: PARTIAL THROMBOPLASTIN RATIO 0.8; PROTHROMBIN TIME (PATIENT) 10.8 SECONDS (9.0-12.0)
[2016-08-27 08:10] VITALS: BP 146/82; PULSE 77; TEMP 36.7; O2SAT 100
[2016-08-27 08:18] LABS: BUN/CREATININE RATIO 7.9 (10-20); CALCIUM 7.8 mg/dl (8.5-10.1); CREATININE 0.72 mg/dl (0.60-1.20); MAGNESIUM 2.1 mg/dl (1.8-2.4); POTASSIUM 3.9 mmol/L (3.5-5.1)
[2016-08-27] MEDS: SULFASALAZINE 500 MG TAB PO SCH ×2 (08:48→19:59)
[2016-08-27] MEDS ORDERED: PNEUMOCOCCAL ADMINISTRATION CHARGE ONE (09:45)
[2016-08-27] MEDS ORDERED: PNEUMOCOCCAL POLYSACCHARIDES 25 MCG/0.5 ML VIAL/SYR IM. ONE (09:45)
[2016-08-27] MEDS ORDERED: PANTOprazole INJ 40 MG in SYRINGE 0 ML IV SCH (11:00)
[2016-08-27] MEDS ORDERED: SUMATRIPTAN SUCC TAB 100 MG TAB PO PRN (13:30)
--- NOTE | 2016-08-27 13:34 | Hospitalist Progress Note ---
Hospitalist Progress Note Date of Service Aug 27, 2016. Subjective Pt evaluation today including: conversation w/ patient, physical exam, chart review, lab review, review of studies, review of inpatient medication list Patient continues to have migraine however improved with darkness Patient continues to be nauseas however states that she desires to eat regular diet Constitutional: No fever Eyes: + eye pain, No diplopia, No worsening of vision ENT: No hearing loss, No nasal symptoms, No sore throat Respiratory: No cough Cardiovascular: No chest pain, No edema Abdomen: + nausea, No constipation, No diarrhea, No pain, No vomiting Musculoskeletal: No joint pain Female : No dysuria, No hematuria Neurologic: No memory loss Psychiatric: No depression symptoms Medications Current Inpatient Medications Medications (Trade) Dose Ordered Sig/Cristóbal Route Start Time Stop Time Status Last Admin Dose Admin Morphine Sulfate (MoRPHine SULFATE INJ) 4 mg Q15M PRN IV 08/26/16 10:15 09/09/16 10:14 08/26/16 22:36 4 MG Duloxetine HCl (Cymbalta Cap) 60 mg DAILY PO 08/27/16 08:00 09/26/16 08:59 08/27/16 07:53 60 MG Pramipexole Dihydrochloride (miraPEX TAB) 0.5 mg HS PO 08/26/16 21:00 09/25/16 20:59 08/26/16 22:40 0.5 MG Pregabalin (Lyrica Cap) 150 mg BID PO 08/26/16 20:00 09/25/16 19:59 08/27/16 07:52 150 MG Sulfasalazine (Azulfidine Tab) 1,000 mg BID PO 08/26/16 20:00 09/25/16 19:59 08/27/16 08:48 1,000 MG Ketorolac Tromethamine (Toradol Inj) 30 mg Q6H PRN IV 08/26/16 16:15 08/31/16 16:14 Acetaminophen (Tylenol Tab) 650 mg Q4H PRN PO 08/26/16 16:15 09/25/16 16:14 Magnesium Hydroxide (Milk Of Magnesia Susp) 30 ml Q6H PRN PO 08/26/16 16:15 09/25/16 16:14 Bisacodyl (Dulcolax Supp) 10 mg DAILY PRN MT 08/26/16 16:15 3/4/17 16:14 Diphenhydramine HCl (Benadryl Inj) 25 mg Q4H PRN IV 08/26/16 16:15 09/25/16 16:14 Al Hydrox/Mg Hydrox/ Simethicone 15 ml 15 ml Q4H PRN PO 08/26/16 16:15 09/25/16 16:14 Promethazine HCl/ Sodium Chloride (Phenergan Inj/ Nss 50ml) 50.5 ml @ 202 mls/hr Q4H PRN IV 08/26/16 16:15 09/25/16 16:14 08/27/16 07:11 202 MLS/HR Zolpidem Tartrate (Ambien Tab) 5 mg HSZ PRN PO 08/26/16 16:15 09/25/16 16:14 Ondansetron HCl (Zofran Inj) 4 mg Q6H PRN IV 08/26/16 16:15 09/25/16 16:14 08/27/16 03:15 4 MG Docusate Sodium (coLACE CAP) 100 mg BID PO 08/26/16 20:00 09/25/16 20:59 08/27/16 07:52 100 MG Morphine Sulfate (MoRPHine SULFATE INJ) 2 mg Q2H PRN IV 08/26/16 16:15 09/09/16 16:14 Morphine Sulfate 4 mg 4 mg Q2H PRN IV 08/26/16 16:15 09/09/16 16:14 08/27/16 06:26 4 MG Acetaminophen 100 ml @ 400 mls/hr Q8H PRN IV 08/26/16 16:15 09/25/16 16:14 Potassium Chloride/Sodium Chloride 1,000 ml @ 100 mls/hr Q10H IV 08/26/16 20:00 09/25/16 19:59 08/27/16 08:47 100 MLS/HR Pantoprazole Sodium 40 mg/ Syringe 10 ml @ 5 mls/min DAILY@11 IV 08/27/16 11:00 09/26/16 10:59 08/27/16 12:34 5 MLS/MIN Lorazepam 1 mg/ Syringe 1 ml @ 1 mls/min Q4H PRN IV 08/26/16 19:15 09/25/16 19:14 08/26/16 22:49 1 MLS/MIN Lorazepam/Syringe (Ativan Inj/ Syringe) 1 ml @ 1 mls/min Q4H PRN IV 08/26/16 19:15 09/25/16 19:14 Objective Vital Signs Date Time Temp Pulse Resp B/P Pulse Ox O2 Delivery O2 Flow Rate FiO2 08/27/16 08:10 36.7 77 16 146/82 100 Room Air 08/27/16 07:40 96 Room Air 08/27/16 00:49 36.6 64 18 114/72 96 Room Air 08/27/16 00:00 96 Room Air 08/26/16 18:38 36.5 66 20 126/84 96 Room Air 08/26/16 17:53 71 20 135/71 96 Room Air 08/26/16 16:09 80 20 141/91 98 Room Air 08/26/16 14:14 63 20 114/72 97 Room Air 08/26/16 13:24 72 Physical Exam General Appearance: WD/WN, no apparent distress Eyes: normal inspection ENT: normal ENT inspection Neck: supple, no adenopathy Respiratory/Chest: chest non-tender, lungs clear Cardiovascular: regular rate, rhythm, no edema Abdomen: normal bowel sounds, soft, + tenderness Extremities: normal range of motion, non-tender Neurologic/Psychiatric: photo cartographer II-XII nml as tested, no motor/sensory deficits, alert, oriented x 3 Skin: normal color, warm/dry Lymphatic: no adenopathy Laboratory Results Last 24 Hours Test 08/26/16 13:50 08/26/16 20:15 08/27/16 07:19 Urine Color YELLOW Urine Appearance CLOUDY Urine pH 8.5 Urine Specific [place] 1.013 Urine Protein NEG Urine Glucose (UA) NEG Urine Ketones NEG Urine Occult Blood NEG Urine Nitrite NEG Urine Bilirubin NEG Urine Urobilinogen NEG Urine Leukocyte Esterase NEG Urine WBC (Auto) 1-5 /hpf Urine RBC (Auto) 0-4 /hpf Urine Hyaline Casts (Auto) 1-5 /lpf Urine Epithelial Cells (Auto) 5-10 /lpf Urine Bacteria (Auto) NEG Vitamin B12 Level 500 pg/mL Folate 15.71 ng/mL Rheumatoid Factor < 10.0 U/mL Lyme Disease IgG Antibody NEG Lyme Disease IgM Antibody NEG White Blood Count 6.02 K/uL Red Blood Count 4.43 M/uL Hemoglobin 13.4 g/dL Hematocrit 40.2 % Mean Corpuscular Volume 90.7 fL Mean Corpuscular Hemoglobin 30.2 pg Mean Corpuscular Hemoglobin Concent 33.3 g/dl Platelet Count 203 K/uL Mean Platelet Volume 10.7 fL Neutrophils (%) (Auto) 50.2 % Lymphocytes (%) (Auto) 40.2 % Monocytes (%) (Auto) 6.8 % Eosinophils (%) (Auto) 2.3 % Basophils (%) (Auto) 0.3 % Neutrophils # (Auto) 3.02 K/uL Lymphocytes # (Auto) 2.42 K/uL Monocytes # (Auto) 0.41 K/uL Eosinophils # (Auto) 0.14 K/uL Basophils # (Auto) 0.02 K/uL RDW Standard Deviation 45.0 fL RDW Coefficient of Variation 13.5 % Immature Granulocyte % (Auto) 0.2 % Immature Granulocyte # (Auto) 0.01 K/uL Prothrombin Time 10.8 SECONDS Prothromb Time International Ratio 1.0 Activated Partial Thromboplast Time 21.2 SECONDS Partial Thromboplastin Ratio 0.8 Sodium Level 140 mmol/L Potassium Level 3.9 mmol/L Chloride Level 107 mmol/L Carbon Dioxide Level 25 mmol/L Anion Gap 8.0 mmol/L Blood Urea Nitrogen 6 mg/dl Creatinine 0.72 mg/dl Est Creatinine Clear Calc Drug Dose 120.3 ml/min Estimated GFR () 126.6 Estimated GFR (Non- 109.3 BUN/Creatinine Ratio 7.9 Random Glucose 88 mg/dl Calcium Level 7.8 mg/dl Magnesium Level 2.1 mg/dl Total Bilirubin 1.1 mg/dl Direct Bilirubin 0.2 mg/dl Aspartate Amino Transf (AST/SGOT) 24 U/L Alanine Aminotransferase (ALT/SGPT) 46 U/L Alkaline Phosphatase 30 U/L Total Protein 6.6 gm/dl Albumin 3.4 gm/dl Cortisol AM Sample 27.67 mcg/dl Assessment and Plan Progressive fatigue - suspect possible rheumatologic etiology given PMHx - appreciate rheumatology input - pending TEMITOPE-12, ANCA, RF, LYME, EHRLICHIOSIS. - fam hx of adrenal insufficiency - check cortisol stim test - check Iron studies Intractable migraine headache, nausea and vomiting - seems to be improving - cont Imitrex prn - continue tordol - MRI reviewed - advance diet Ankylosing spondylitis/Gilberto-Danlos syndrome type III - continue Toradol - Continue sulfasalazine 1000 mg by mouth twice a day. Restless leg syndrome -continue Mirapex 0.5 mg by mouth at bedtime. Depression/chronic pain - continue Cymbalta 60 mg by mouth by mouth daily - Continue Lyrica 150 mg by mouth twice a day. Full Code
[2016-08-27 16:00] VITALS: O2SAT 96
[2016-08-27 16:02] VITALS: BP 120/78; PULSE 89; TEMP 37; O2SAT 96
--- NOTE | 2016-08-27 17:40 | Rheumatology Consultation ---
Rheumatology Consultation Date of Consultation: Aug 27, 2016. Reason for Consultation: Patient presented with migranes and weakness and fatigue. Patient with known ankylosing spondylitis on Simponi, sulfasalazine and Voltaren, Is this part of her Ankylosing spondylitis? History of Present Illness Pateint with known ankylosing spondylitis on immunosuppressives presents with worsening migraines and ,fatigue . The patient denied any worsening of her joint symptoms. She has no new joints involved. She has her usual stiffness in her SI joints . Her other joints other than her hypermobility are normal.She does not have any localizing review of symptoms. Since she has been in the hospital and her migranes are better controlled and she is better hydrated, she feels much better. Her major complaint was a migraine that is better controlled. She was fine without photophobia even with the bright over head light on. Social History Smoking Status: Never Smoker History of Alcohol Use: Yes (SOCIALLY - 1-2 GLASSES PER WEEK ) Drug Use: none Housing Status: lives with family Review of Systems Constitutional: + fatigue, No chills, No fever, No problem reported, No see HPI , No sweats, No weakness, No weight loss Eyes: No diplopia, No discharge, No eye pain, No problem reported, No redness, No see HPI, No worsening of vision ENT: No dental problems, No hearing loss, No nasal symptoms, No problem reported, No see HPI, No sore throat, No tinnitus, No trouble swallowing, No unusual epistaxis Respiratory: No cough, No dyspnea at rest, No dyspnea on exertion, No hemoptysis, No problem reported, No see HPI, No shortness of breath, No sputum, No wheezing Cardiac: No PND, No chest pain, No claudication, No edema, No orthopnea, No palpitations, No problem reported, No see HPI Abdomen: No GI bleeding, No constipation, No diarrhea, No nausea, No pain, No problem reported, No see HPI, No vomiting Musculoskeletal: + joint pain (bilat SI tenderness), No calf pain, No muscle pain, No problem reported, No see HPI, No swelling Female : No abnormal vaginal bleeding, No dysuria, No hematuria, No incontinence, No problem reported, No see HPI, No urinary frequency, No vaginal discharge Neurologic: No balance problems, No memory loss, No numbness/tingling, No paralysis, No problem reported, No see HPI, No vertigo, No weakness Psychiatric: No anhedonism, No anxiety, No depression symptoms, No insomnia, No problem reported, No see HPI, No substance abuse Heme: No abnormal bleeding/bruising, No clotting problems, No night sweats, No problem reported, No see HPI, No swollen lymph nodes Endo: + fatigue, No excessive thirst, No excessive urination, No problem reported, No see HPI Skin: No bleeding, No color change, No itch, No new/changing skin lesions, No problem reported, No rash, No see HPI Allergies Coded Allergies: Eggplant (Verified Allergy, Intermediate, "HIVES", 07/08/16) Townsend (Verified Allergy, Intermediate, "SWELLING", 08/26/16) Oxycodone (Unverified Allergy, Mild, GI SYMPTOMS, 07/08/16) Sulfa Antibiotics (Unverified Allergy, Mild, GI SYMPTOMS, 07/08/16) Medications Current Inpatient Medications Medications (Trade) Dose Ordered Sig/Cristóbal Route Start Time Stop Time Status Last Admin Dose Admin Duloxetine HCl (Cymbalta Cap) 60 mg DAILY PO 08/27/16 08:00 09/26/16 08:59 08/27/16 07:53 60 MG Pramipexole Dihydrochloride (miraPEX TAB) 0.5 mg HS PO 08/26/16 21:00 09/25/16 20:59 08/26/16 22:40 0.5 MG Pregabalin (Lyrica Cap) 150 mg BID PO 08/26/16 20:00 09/25/16 19:59 08/27/16 07:52 150 MG Sulfasalazine (Azulfidine Tab) 1,000 mg BID PO 08/26/16 20:00 09/25/16 19:59 08/27/16 08:48 1,000 MG Ketorolac Tromethamine (Toradol Inj) 30 mg Q6H PRN IV 08/26/16 16:15 08/31/16 16:14 Acetaminophen (Tylenol Tab) 650 mg Q4H PRN PO 08/26/16 16:15 09/25/16 16:14 Magnesium Hydroxide (Milk Of Magnesia Susp) 30 ml Q6H PRN PO 08/26/16 16:15 09/25/16 16:14 Bisacodyl (Dulcolax Supp) 10 mg DAILY PRN W[place] 08/26/16 16:15 09/25/16 16:14 Diphenhydramine HCl (Benadryl Inj) 25 mg Q4H PRN IV 08/26/16 16:15 09/25/16 16:14 Al Hydrox/Mg Hydrox/ Simethicone 15 ml 15 ml Q4H PRN PO 08/26/16 16:15 09/25/16 16:14 Promethazine HCl/ Sodium Chloride (Phenergan Inj/ Nss 50ml) 50.5 ml @ 202 mls/hr Q4H PRN IV 08/26/16 16:15 09/25/16 16:14 08/27/16 07:11 202 MLS/HR Zolpidem Tartrate (Ambien Tab) 5 mg HSZ PRN PO 08/26/16 16:15 09/25/16 16:14 Ondansetron HCl (Zofran Inj) 4 mg Q6H PRN IV 08/26/16 16:15 09/25/16 16:14 08/27/16 03:15 4 MG Docusate Sodium (coLACE CAP) 100 mg BID PO 08/26/16 20:00 09/25/16 20:59 08/27/16 07:52 100 MG Morphine Sulfate (MoRPHine SULFATE INJ) 2 mg Q2H PRN IV 08/26/16 16:15 09/09/16 16:14 Morphine Sulfate 4 mg 4 mg Q2H PRN IV 08/26/16 16:15 09/09/16 16:14 08/27/16 06:26 4 MG Acetaminophen 100 ml @ 400 mls/hr Q8H PRN IV 08/26/16 16:15 09/25/16 16:14 Potassium Chloride/Sodium Chloride 1,000 ml @ 100 mls/hr Q10H IV 08/26/16 20:00 09/25/16 19:59 08/27/16 08:47 100 MLS/HR Pantoprazole Sodium 40 mg/ Syringe 10 ml @ 5 mls/min DAILY@11 IV 08/27/16 11:00 09/26/16 10:59 08/27/16 12:34 5 MLS/MIN Lorazepam 1 mg/ Syringe 1 ml @ 1 mls/min Q4H PRN IV 08/26/16 19:15 09/25/16 19:14 08/26/16 22:49 1 MLS/MIN Lorazepam/Syringe (Ativan Inj/ Syringe) 1 ml @ 1 mls/min Q4H PRN IV 08/26/16 19:15 09/25/16 19:14 Sumatriptan Succinate (Imitrex Tab) 100 mg DAILY PRN PO 08/27/16 13:30 09/26/16 13:29 Physical Exam Date Time Temp Pulse Resp B/P Pulse Ox O2 Delivery O2 Flow Rate FiO2 08/27/16 16:02 37.0 89 18 120/78 96 Room Air 08/27/16 08:10 36.7 77 16 146/82 100 Room Air 08/27/16 07:40 96 Room Air 08/27/16 00:49 36.6 64 18 114/72 96 Room Air 08/27/16 00:00 96 Room Air 08/26/16 18:38 36.5 66 20 126/84 96 Room Air 08/26/16 17:53 71 20 135/71 96 Room Air General Appearance: WD/WN, no apparent distress Eyes: bilateral eyes normal inspection ENT: normal ENT inspection, hearing grossly normal, pharynx normal Neck: supple, no adenopathy, thyroid normal, no JVD Respiratory: chest non-tender, lungs clear, normal breath sounds, no respiratory distress, no accessory muscle use Cardiovascular: regular rate, rhythm, no edema, no gallop, no JVD, no murmur Abdomen: normal bowel sounds, non tender, soft, no organomegaly Neurologic/Psychiatric: no motor/sensory deficits, alert, normal mood/affect, oriented x 3 Skin: normal color, warm/dry, no rash Lymphatic: no adenopathy Laboratory Results Last 24 Hours Test 08/26/16 20:15 08/27/16 07:19 Vitamin B12 Level 500 pg/mL Folate 15.71 ng/mL Rheumatoid Factor < 10.0 U/mL Lyme Disease IgG Antibody NEG Lyme Disease IgM Antibody NEG White Blood Count 6.02 K/uL Red Blood Count 4.43 M/uL Hemoglobin 13.4 g/dL Hematocrit 40.2 % Mean Corpuscular Volume 90.7 fL Mean Corpuscular Hemoglobin 30.2 pg Mean Corpuscular Hemoglobin Concent 33.3 g/dl Platelet Count 203 K/uL Mean Platelet Volume 10.7 fL Neutrophils (%) (Auto) 50.2 % Lymphocytes (%) (Auto) 40.2 % Monocytes (%) (Auto) 6.8 % Eosinophils (%) (Auto) 2.3 % Basophils (%) (Auto) 0.3 % Neutrophils # (Auto) 3.02 K/uL Lymphocytes # (Auto) 2.42 K/uL Monocytes # (Auto) 0.41 K/uL Eosinophils # (Auto) 0.14 K/uL Basophils # (Auto) 0.02 K/uL RDW Standard Deviation 45.0 fL RDW Coefficient of Variation 13.5 % Immature Granulocyte % (Auto) 0.2 % Immature Granulocyte # (Auto) 0.01 K/uL Prothrombin Time 10.8 SECONDS Prothromb Time International Ratio 1.0 Activated Partial Thromboplast Time 21.2 SECONDS Partial Thromboplastin Ratio 0.8 Sodium Level 140 mmol/L Potassium Level 3.9 mmol/L Chloride Level 107 mmol/L Carbon Dioxide Level 25 mmol/L Anion Gap 8.0 mmol/L Blood Urea Nitrogen 6 mg/dl Creatinine 0.72 mg/dl Est Creatinine Clear Calc Drug Dose 120.3 ml/min Estimated GFR () 126.6 Estimated GFR (Non- 109.3 BUN/Creatinine Ratio 7.9 Random Glucose 88 mg/dl Calcium Level 7.8 mg/dl Magnesium Level 2.1 mg/dl Total Bilirubin 1.1 mg/dl Direct Bilirubin 0.2 mg/dl Aspartate Amino Transf (AST/SGOT) 24 U/L Alanine Aminotransferase (ALT/SGPT) 46 U/L Alkaline Phosphatase 30 U/L Total Protein 6.6 gm/dl Albumin 3.4 gm/dl Cortisol AM Sample 27.67 mcg/dl Assessment & Plan Problem List: Ankylosing Spondylitis Gilberto-Danlos syndrome type III Fibromyalgia Assessment & Plan: Problem 1. Ankylosing spondylitis . Stable, only evidence of SI tenderness as demonstrated with a positive JOSE test bilat. Recommend continuing the Simponia , Sulfalazine 1000 mg bid . I agree with holding the Voltaren in the hospital. Problem 2. Migraine. I do not think it is related to the ankylosing spondylitis. agree with the current management and work up. Problem 3. Gilberto Danlos type 3 . This is the hypermobile form that does not need specific therapy at present.Should other causes of the Migraine be ruled out, EDS3 can play a role in migraine exacerbation. Problem 4. Dehydration: this is being managed. Problen 5. Fibromyalgia. This is not playing an active role at this time. I do not recommend any other studies or blood work at this time. If there are any further questions you would like me to address please call. I am not head of operation and logistics this weekend. Dr Love for Rheumatology .
[2016-08-27] MEDS: PRAMIPEXOLE DIHYDROCHLORIDE 0.5 MG TAB PO SCH (19:58)
[2016-08-28] VITALS: BP 129/78; PULSE 68; TEMP 36.8; O2SAT 97
[2016-08-28] MEDS: NSS + 20MEQ KCL 1000ML 1,000 ML IV SCH (02:18)
[2016-08-28 06:49] LABS: BASO % 0.3 %; BASO ABS # 0.02 K/uL (0-0.2); COMPLETE YES; HEMATOCRIT 39.4 % (37-47); IG% 0.2 %; LYMPH % 32.1 %; MEAN CELL VOLUME 90.2 fL (80-100); MEAN CORPUSCULAR HEMOGLOBIN 30.4 pg (25-34); MEAN CORPUSCULAR HGB CONC 33.8 g/dl (32-36); MEAN PLATELET VOLUME 10.7 fL (7.4-10.4); MONO % 5.9 %; NEUT % 59.5 %; PLATELET COUNT 218 K/uL (130-400); RED BLOOD COUNT 4.37 M/uL (4.2-5.4); WHITE BLOOD COUNT 5.92 K/uL (4.8-10.8)
[2016-08-28 06:58] LABS: INR 0.9 (0.9-1.1); PROTHROMBIN TIME (PATIENT) 10.1 SECONDS (9.0-12.0)
[2016-08-28 07:19] LABS: BUN/CREATININE RATIO 9.6 (10-20); CALCIUM 8.2 mg/dl (8.5-10.1); CREATININE 0.73 mg/dl (0.60-1.20); MAGNESIUM 2.1 mg/dl (1.8-2.4); POTASSIUM 3.5 mmol/L (3.5-5.1)
[2016-08-28 07:35] VITALS: O2SAT 97
[2016-08-28] MEDS: DULOXETINE HCL 60 MG CAP PO SCH (07:38)
[2016-08-28] MEDS: SULFASALAZINE 500 MG TAB PO SCH (07:38)
[2016-08-28] MEDS: DOCUSATE SODIUM 100 MG CAP PO SCH (07:38)
[2016-08-28 07:39] VITALS: BP 130/84; PULSE 84; TEMP 36.8; O2SAT 98
[2016-08-28] MEDS: PREGABALIN 150 MG CAP PO SCH (07:39)
--- NOTE | 2016-08-28 08:39 | Discharge Instructions ---
Discharge Instructions Admission Admission Date: Aug 26, 2016 at 16:16 Admission Diagnosis: Intractable Headache. Discharge Care Plan - Problem: Medical Problems: Migraines Dehydration Care Plan - Goal(s): Decrease discomfort, Improve function Care Plan - Instructions: Activity Recommendations: no limitations Recommended Home Diet: Regular Provider Instructions: Please follow up with your PCP in 1-2 weeks VTE Core Measure Inpt VTE Proph given/why not?: SCD's Milagros Manzo Recommendations: Call your doctor if: * Temperature above 101 degrees * Pain not relieved by pain medicine ordered * There is increased drainage or redness from any incision * You have any unanswered questions or concerns. Your Doctors Instructions noted above were prepared by provider Paola Ordoñez.
[2016-08-28 09:27] VITALS: BP 130/84; PULSE 84; TEMP 36.8; O2SAT 98
--- NOTE | 2016-08-28 13:54 | Discharge Summary ---
Discharge Summary Admission Date: Aug 26, 2016 at 16:16 Discharge Date: Aug 28, 2016 Principal Diagnosis: Migraines/Fatigue Problems/Secondary Diagnoses: (1) Ankylosing Spondylitis Status: Chronic (2) Anxiety State Nos Status: Chronic (3) Asthma, Unspecified Status: Chronic (4) Attn Defic Nonhyperact Status: Chronic (5) Depressive Disorder Nec Status: Chronic (6) Gilberto-Danlos syndrome type III Status: Chronic (7) Esophageal Reflux Status: Chronic (8) Fibromyalgia Status: Chronic Consultations: Rheumatology Medication Reconciliation Continued Medications: Cetirizine Hcl (Zyrtec) 10 Mg Tab 10 MG PO DAILY PRN for CONGESTION Cholecalciferol (Vitamin D) 1,000 Unit Tab 1 TAB PO DAILY Diclofenac Sodium (Diclofenac Sodium Dr) 25 Mg Tab 25 MG PO QID, #120 Duloxetine Hcl (Cymbalta) 60 Mg Cap 60 MG PO DAILY for 90 Days, #90 CAP 3 Refills Ethinyl Estradiol/Norethindr (June) 1 Tab Tab 1 TAB PO DAILY for 28 Days, #28 TAB 11 Refills Golimumab (Simponi) 50 Mg/0.5 Ml Inj 50 MG INJ Q4WK Lorazepam (Ativan) 0.5 Mg Tab 0.5 MG PO TID PRN for Anxiety, TAB Morphine Sulfate Ir (Morphine Sulfate Ir) 15 Mg Tab 15-45 MG PO Q4 PRN for Pain, TAB Pramipexole Dihydrochloride (Mirapex) 0.25 Mg Tab 0.5 MG PO HS for 90 Days, #90 TAB 1 Refill Pregabalin (Lyrica) 150 Mg Cap 150 MG PO BID, #60 Sulfasalazine (Azulfidine) 500 Mg Tab 1000 MG PO BID, TAB Discharge Exam Review of Systems: Constitutional: No chills Eyes: No worsening of vision ENT: No unusual epistaxis Respiratory: No cough, No shortness of breath, No sputum Cardiovascular: No PND, No chest pain Abdomen: No nausea, No pain, No vomiting Musculoskeletal: No joint pain Genitourinary - Female: No dysuria Neurologic: No memory loss, No paralysis Psychiatric: No depression symptoms Endocrine: No fatigue Hematologic / Lymphatic: No abnormal bleeding/bruising Physical Exam: General Appearance: WD/WN, no apparent distress Eyes: normal inspection ENT: normal ENT inspection Neck: supple, no adenopathy Respiratory/Chest: chest non-tender, lungs clear, normal breath sounds Cardiovascular: regular rate, rhythm, no edema, no gallop Abdomen / GI: normal bowel sounds, non tender, soft, no organomegaly Extremities: normal inspection, no calf tenderness Neurologic/Psychiatric: energy conservation specialist II-XII nml as tested, no motor/sensory deficits , alert, oriented x 3 Skin: normal color, warm/dry, no rash Lymphatic: no adenopathy Hospital Course The patient is a 35-year-old female who was referred by her PCP Dr. Mata, to the emergency department with worsening fatigue, chills, dizziness, nausea and vomiting, and worsening headache over the past several days. She reports that her headaches are consistent with previous migraines but are lasting longer than usual. She's had no recent travel, sick exposures that she is aware of, suspect food or liquid intake Progressive fatigue - unclear etiology possible rheumatologic etiology, appreciated rheumatology consult, multiple labs sent for workup - pending TEMITOPE-12, ANCA, RF, LYME, EHRLICHIOSIS. ASM- ab, B2 PGI, SSA-a/b, TEMITOPE - fam hx of adrenal insufficiency - cortisol level normal - patients fatigue greatly improved with IVF hydration Intractable migraine headache, nausea and vomiting - resolved - started on tordol/ discharged on diclofenac - MRI reviewed - no acute intracranial process Ankylosing spondylitis/Gilberto-Danlos syndrome type III - continued Toradol - Continued sulfasalazine 1000 mg by mouth twice a day. Restless leg syndrome -continue dMirapex 0.5 mg by mouth at bedtime. Depression/chronic pain - continued Cymbalta 60 mg by mouth by mouth daily - Continued Lyrica 150 mg by mouth twice a day. Full Code Total Time Spent: Greater than 30 minutes This includes examination of the patient, discharge planning, medication reconciliation, and communication with other providers. Discharge Instructions Please refer to the electronic Patient Visit Report (Discharge Instructions) for additional information. Additional Copies To Laz Mata Jr,AraceliO.
[2016-08-31 22:32] LABS: EHRLICHIA CHAFF IGG AB <1:64 (<1:64); EHRLICHIA CHAFF IGM AB <1:20 (<1:20); MYELOPEROXIDASE AB <1.0 AI (<1.0)
[2016-09-01 15:30] LABS: ANTI NEUTROPHIL ANTIBODY NONE DETECTED (NONE DETECTED); ANTI SS DNA TC 14857X <69 U/mL (<230); ANTI-CENTROMERE AB <1.0 NEG AI (<1.0 NEG); ANTI-HISTONE AB <1.0 U (<1.0); ANTI-SS-A <1.0 NEG AI (<1.0 NEG); ANTI-SS-B <1.0 NEG AI (<1.0 NEG); B2 GLYCOPROTEIN IGA <9 SAU (<=20); B2 GLYCOPROTEIN IGG <9 SGU (<=20); B2 GLYCOPROTEIN IGM <9 SMU (<=20); DRVVT MIX INTERPRETAION Not Indicated; LAC PTT SCREEN 38 sec (<=40); LUPUS ANTICOAGULANT** TC36573X Negative (Negative); MICROSOMAL AB 3 IU/ML (<9); PHOSPHATIDYLSERINE IGA <20 U/mL (<20); PHOSPHATIDYLSERINE IGG <10 U/mL (<10); PHOSPHATIDYLSERINE IGM <25 U/mL (<25); SM.RNP ANTIBODY <1.0 NEG AI (<1.0 NEG); Sm Antibody <1.0 NEG AI (<1.0 NEG)
== END 2016-08-28 13:04 | disposition home or self-care (01) | DRG 103 ==
LOC: ENRESERVTM → ENRESERVDT → C.EDB 09:39 → C.MS4W 16:16
PROVIDERS: ADMIT Hospitalist; ATTEND Hospitalist
DX: G43.919 Migraine, unspecified, intractable, without status migrainosus (principal); Q79.6 Ehlers-Danlos syndromes; F32.9 Major depressive disorder, single episode, unspecified; R11.2 Nausea with vomiting, unspecified; M45.9 Ankylosing spondylitis of unspecified sites in spine; M79.7 Fibromyalgia; Z79.899 Other long term (current) drug therapy

== ENCOUNTER → 2016-10-14 | Outpatient (CLI) | payer OTHER ==
[~2016-10-14] MED LIST changes: +DICL1TAB5 PO
--- NOTE | 2016-10-14 12:39 | DIAGNOSTIC IMAGING REPORT ---
MRI cervical spine CERVICAL FLEX/EXT CSF CLINICAL HISTORY: CERVICAL MYELOPATHY radiculopathy TECHNIQUE: Multiaxial MRI acquisition. CSF flow study with patient in flexion as well as extension COMPARISON STUDY: 05/12/2016 FINDINGS: Normal signal characteristics of the vertebral bodies as well as intervertebral disc. No evidence for change in position with patient in flexion as well as extension. CSF flow study is unremarkable. No change in CSF flow characteristics on a positional basis. IMPRESSION: Normal study. No evidence of disc herniation. No positional change in configuration of the cervical spine. Normal CSF flow study Electronically signed by: Sagar August M.D. 10/14/2016 12:38 PM Dictated Date/Time: 10/14/2016 12:29 PM
== END | disposition home or self-care (01) ==
LOC: C.MRIBC 10:20
DX: G95.9 Disease of spinal cord, unspecified (principal)

== ENCOUNTER → 2017-01-26 | Outpatient (CLI) | payer OTHER ==
[2017-01-26 17:29] LABS: BASO % 0.6 %; BASO ABS # 0.03 K/uL (0-0.2); COMPLETE YES; EOS % 2.7 %; HEMATOCRIT 42.4 % (37-47); LYMPH % 41.2 %; LYMPH ABS # 2.12 K/uL (1.2-3.4); MEAN CELL VOLUME 87.8 fL (80-100); MEAN CORPUSCULAR HEMOGLOBIN 29.2 pg (25-34); MEAN CORPUSCULAR HGB CONC 33.3 g/dl (32-36); MONO % 9.1 %; NEUT % 46.4 %; PLATELET COUNT 211 K/uL (130-400); RED BLOOD COUNT 4.83 M/uL (4.2-5.4); WHITE BLOOD COUNT 5.15 K/uL (4.8-10.8)
[2017-01-26 17:39] LABS: ALT/SGPT 54 U/L (12-78); AST/SGOT 28 U/L (15-37); BLOOD UREA NITROGEN 9 mg/dl (7-18); BUN/CREATININE RATIO 13.1 (10-20); CALCIUM 8.8 mg/dl (8.5-10.1); CARBON DIOXIDE 25 mmol/L (21-32); CHLORIDE 109 mmol/L (98-107); CREATININE 0.69 mg/dl (0.60-1.20); GLUCOSE 93 mg/dl (70-99); MAGNESIUM 2.1 mg/dl (1.8-2.4); POTASSIUM 3.6 mmol/L (3.5-5.1); SODIUM 141 mmol/L (136-145)
[2017-01-26 17:46] LABS: INSULIN FASTING 43.4 mU/L (3-25); TESTOSTERONE,TOTAL 26.6 ng/dl
[2017-01-26 17:48] LABS: ALKALINE PHOSPHATASE 32 U/L (45-117); C-REACTIVE PROTEIN < 0.29 mg/dl (0-0.29)
[2017-01-27 06:45] LABS: ESTIMATED AVERAGE GLUCOSE 114 mg/dl; HA1C FLAG Normal (Normal)
== END | disposition home or self-care (01) ==
LOC: C.LABBC 13:53
DX: N93.8 Other specified abnormal uterine and vaginal bleeding (principal); R53.83 Other fatigue; M19.90 Unspecified osteoarthritis, unspecified site